=== PATIENT | male | born 1980 | race Two or more races ===

== ENCOUNTER 2019-10-22 13:55 | Emergency (ER) | payer MEDICAID, OTHER ==
[~2019-10-22] VITALS: Ht 177.8 cm; Wt 92.1 kg
[2019-10-22] MEDS ORDERED: ONDANSETRON 4 MG TAB.RAPDIS ONE (15:50)
[2019-10-22] MEDS ORDERED: HYDROCODONE/APAP 5/325MG 1 EACH TABLET ONE (15:50)
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
--- NOTE | 2019-10-22 15:58 | NUR ---
Patient discharged to home in stable condition. Written and verbal after care instructions given. Patient verbalizes understanding of instruction.
[2019-10-22 15:59] VITALS: BP 120/82
[2019-10-22] MEDS ORDERED: ONDANSETRON 4 MG TAB.RAPDIS SL ONE (16:00)
[2019-10-22] MEDS ORDERED: HYDROCODONE/APAP 5/325MG 1 EACH TABLET PO ONE (16:00)
== END 2019-10-22 16:00 | disposition home or self-care (01) ==
LOC: ER 13:55 → EDBD 13:55 → ER 16:00
DX: M50.322 Other cervical disc degeneration at C5-C6 level (principal); M54.5 Low back pain; M54.6 Pain in thoracic spine; M25.512 Pain in left shoulder; Z90.89 Acquired absence of other organs; V49.49XA Driver injured in collision with other motor vehicles in traffic accident, initial encounter; Y93.89 Activity, other specified; Y92.488 Other paved roadways as the place of occurrence of the external cause; Y99.8 Other external cause status
CPT/HCPCS: 72125; 72128; 72131; 73030; 99285; Q0162